=== PATIENT | female | born 1970 | race Caucasian/White ===

== ENCOUNTER 2017-03-24 01:55 | Emergency (ER) | payer BC ==
[2017-03-24] MEDS ORDERED: Ondansetron HCl/PF 4 MG/2 ML Vial ONE (02:34)
[2017-03-24] MEDS ORDERED: Ketorolac Tromethamine 30 MG/ML VIAL ONE (02:34)
[2017-03-24 03:02] LABS: #Eosinphils 0.2 thou/uL (0.0-0.7); #Lymphocytes 2.5 thou/uL (1.20-3.40); #Monocytes 0.6 thou/uL (0.11-0.59); #Neutrophils 5.9 thou/uL (1.40-6.50); %Basophils 0.4 % (0.0-1.0); %Eosinophils 2.5 % (0.0-10.0); %Lymphocytes 27.1 % (21.0-51.0); %Monocytes 6.4 % (0.0-10.0); Hematocrit 37.3 % (36.0-47.0); Mean Platelet Volume 8.5 fL (7.4-10.4); Red Blood Cell (RBC) Count 4.68 mill/uL (4.20-5.40); White Blood Cell (WBC) Count 9.3 thou/uL (4.8-10.8)
[2017-03-24 03:08] LABS: ALT (SGPT) 45 U/L (8-55); AST (SGOT) 36 U/L (5-34); Alkaline Phosphatase 87 U/L (40-150); Anion Gap 13 mmol/L (10-20); BUN (Urea Nitrogen) 14 mg/dL (7.0-18.7); Bilirubin, Total 0.3 mg/dL (0.2-1.2); CK (CPK) 39 U/L (29-168); Calc. Creatinine Clearance 0 mL/min (70-130); Calcium 9.5 mg/dL (7.8-10.44); Carbon Dioxide 28 mmol/L (22-29); Chloride 99 mmol/L (98-107); Estimated GFR-MDRD 75; Globulin 3.4 g/dL (2.4-3.5); Lipase 77 U/L (8-78); Protein, Total 7.3 g/dL (6.0-8.3)
[2017-03-24 03:13] LABS: Troponin I Less than 0.010 ng/mL (< 0.028)
--- NOTE | 2017-03-24 08:25 | ULT ---
PRELIMINARY REPORT/[facility]/EMERGENCY AFTER HOURS PROCEDURE: EXAM: US Abdomen Limited, Right Upper Quadrant EXAM DATE/TIME: Exam ordered 03/24/2017 2:37 AM CLINICAL HISTORY: 46 years old, female; Pain and signs and symptoms; Nausea and other: Diarrhea; Abdominal pain; Genera lized TECHNIQUE: Real-time ultrasound of the right upper quadrant with image documentation. COMPARISON: No relevant prior studies available. FINDINGS: Liver: The liver is enlarged and echogenic compatible fatty liver. No intrahepatic bile duct dilation . Gallbladder: A negative sonographic Marrero sign is reported. No cholelithiasis, sludge, wall thickeni ng or pericholecystic fluid is identified. Common bile duct: Common bile duct measures up to 6 mm per No stones. No dilation. Pancreas: The visualized pancreas is unremarkable. Right kidney: The RIGHT kidney measures 12.2 x 6.0 x 4.7 cm. No stones. No hydronephrosis. IMPRESSION: Hepatic steatosis. Thank you for allowing us to participate in the care of your patient. Dictated and Authenticated by: Sylvain Landon MD 03/24/2017 3:19 AM Central Time ([place] & [place]) FINAL REPORT RIGHT UPPER QUADRANT ULTRASOUND: Date: 03/24/17 COMPARISON: None. HISTORY: Right upper quadrant pain, nausea, diarrhea. FINDINGS: I agree with the preliminary report given by Raul. The hepatic parenchyma is diffusely echogenic and heterogeneous, suggesting hepatocellular disease, such as hepatic steatosis. The imaged pancreas is u nremarkable, the tail partially obscured by bowel gas. [employer] Consultant reports a negative Marrero's sign. Right kidney measures 12.2 cm in craniocaudal dimension and demonstrates no evidence for stone, hydro nephrosis, or mass lesion. No gallbladder wall thickening, pericholecystic fluid, or gallstones noted . CBD measures 5-6 mm, within normal limits. IMPRESSION: Findings suggesting hepatic steatosis. POS: KARYNA
== END 2017-03-24 04:47 | disposition home or self-care (01) ==
LOC: ERS 01:55
DX: R10.13 Epigastric pain (principal); E03.9 Hypothyroidism, unspecified; E11.9 Type 2 diabetes mellitus without complications; I10 Essential (primary) hypertension; E66.9 Obesity, unspecified; Z86.711 Personal history of pulmonary embolism; D64.9 Anemia, unspecified
CPT/HCPCS: 76705; 80053; 82550; 82553; 83690; 84484; 85025; 93005; 96361; 96374; 96375; J1885; J2405

== ENCOUNTER 2019-06-26 15:27 | Outpatient (CLI) | payer BC ==
--- NOTE | 2019-06-26 16:20 | MRI ---
MRI OF THE LUMBAR SPINE WITHOUT CONTRAST: 06/26/19 HISTORY: Low back pain. COMPARISON: None. FINDINGS: The aortic contour is nonaneurysmal. No retroperitoneal or periaortic adenopathy. No marrow infiltrat carlos process. The conus medullaris terminates near the superior end plate of L1. Levels are as follows: L1-2: Normal disc. No neural foraminal or spinal canal narrowing. L2-3: Normal disc. Mild facet arthrosis. No neural foraminal or spinal canal stenosis. L3-4: Normal disc. Mild facet arthrosis. No neural foraminal or spinal canal narrowing. L4-5: Relatively normal disc. Mild facet arthrosis. Small facet joint effusions. No significant neura l foraminal or spinal canal narrowing. L5-S1: Normal disc. Mild to moderate facet arthropathy. No neural foraminal or spinal canal narrowin g. IMPRESSION: 1. No disc herniation. 2. Low grade facet arthrosis throughout the lumbar spine. 3. Small synovial cysts along the left L3-4 facet joint. POS: ALLEN
== END 2019-06-26 15:28 | disposition home or self-care (01) ==
LOC: TBSIIMAG 15:27
PROVIDERS: ATTEND Orthopaedic Surgery
DX: M54.5 Low back pain (principal); M47.816 Spondylosis without myelopathy or radiculopathy, lumbar region
CPT/HCPCS: 72148

== ENCOUNTER 2019-09-18 13:40 | Emergency (ER) | payer BC ==
[~2019-09-18 13:40] MED LIST: Iopamidol-370 76% 500 ML 1 ML ONE
[2019-09-18 14:03] LABS: #Eosinphils 0.2 thou/uL (0.0-0.7); #Lymphocytes 2.8 thou/uL (1.20-3.40); #Monocytes 0.8 thou/uL (0.11-0.59); %Basophils 0.3 % (0.0-1.0); %Eosinophils 1.8 % (0.0-10.0); %Lymphocytes 23.7 % (21.0-51.0); %Monocytes 6.4 % (0.0-10.0); %Neutrophils 67.9 % (42.0-75.0); Hemoglobin 12.8 g/dL (12.0-16.0); Mean Corpuscular HGB CONC 32.6 g/dL (32.0-36.0); Mean Corpuscular Hemoglobin 26.6 pg (27.0-31.0); Mean Corpuscular Volume 81.3 fL (78.0-98.0); Mean Platelet Volume 8.1 fL (7.4-10.4); Platelet Count 317 thou/uL (130-400); RBC Distribution Width 14.9 % (11.5-14.5); Red Blood Cell (RBC) Count 4.84 mill/uL (4.20-5.40); White Blood Cell (WBC) Count 11.8 thou/uL (4.8-10.8)
[2019-09-18 14:23] LABS: ALT (SGPT) 36 U/L (8-55); AST (SGOT) 29 U/L (5-34); Alkaline Phosphatase 79 U/L (40-110); Anion Gap 13 mmol/L (10-20); BUN (Urea Nitrogen) 17 mg/dL (7.0-18.7); Bilirubin, Total 0.6 mg/dL (0.2-1.2); CK (CPK) 57 U/L (29-168); Calc. Creatinine Clearance 0 mL/min (70-130); Calcium 9.3 mg/dL (7.8-10.44); Carbon Dioxide 26 mmol/L (22-29); Chloride 102 mmol/L (98-107); Estimated GFR-MDRD 73; Globulin 3.4 g/dL (2.4-3.5); Glucose 145 mg/dL (70-105); Potassium 4.2 mmol/L (3.5-5.1); Protein, Total 7.4 g/dL (6.0-8.3); Sodium 137 mmol/L (136-145)
[2019-09-18 14:32] LABS: INR-International Normal Ratio 1.7; Prothrombin Time 19.7 sec (12.0-14.7)
--- NOTE | 2019-09-18 14:32 | RAD ---
RADIOGRAPH CHEST 1 VIEW: DATE: 09/18/2019 HISTORY: 48-year-old female with chest pain FINDINGS: There is no airspace density, pulmonary edema, or pneumothorax. The lateral costophrenic angles are n ot effaced. Increased transverse diameter of the cardiac shadow is at least in part due to paracardial fat pads, as demonstrated on prior CTA of 07/14/2016. IMPRESSION: No acute pulmonary findings.
[2019-09-18 14:33] LABS: PTT 39.4 sec (22.9-36.1)
--- NOTE | 2019-09-18 15:30 | CT ---
CT PULMONARY ANGIOGRAM WITH IV CONTRAST AND 3D POSTPROCESSIN09/18/19 HISTORY: Chest pain, shortness of breath. FINDINGS: There is suboptimal opacification of the pulmonary arterial vasculature to evaluate for PE. The thora cic aorta is better opacified than the pulmonary arterial vasculature. No intimal flap is seen in the well opacified thoracic aortic lumen to suggest dissection. No aneurysmal dilatation or the thoracic aorta is seen. No pleural or pericardial effusions are identified. No pneumothoraces, focal areas of consolidation, or lung nodules/masses are identified. There are degenerative changes in the spine. IMPRESSION: 1. Exam is nondiagnostic for pulmonary embolism. 2. No evidence of thoracic aortic aneurysm/dissection. POS: [facility]
--- NOTE | 2019-09-22 14:10 | EKG ---
Test Reason : Blood Pressure : / mmHG Vent. Rate : 083 BPM Atrial Rate : 083 BPM P-R Int : 102 ms QRS Dur : 102 ms QT Int : 406 ms P-R-T Axes : -07 020 027 degrees QTc Int : 477 ms Sinus rhythm with short AL Incomplete right bundle branch block Borderline ECG Confirmed by JANEY ANNE DO ([id number]), publishing editor FINESSE HAGEN ([id number]) on 09/22/2019 2:10:06 PM Referred By: Confirmed By:JANEY ANNE DO
== END 2019-09-18 16:31 | disposition home or self-care (01) ==
LOC: ERS 13:40
DX: R07.89 Other chest pain (principal); E03.9 Hypothyroidism, unspecified; E11.9 Type 2 diabetes mellitus without complications; I49.9 Cardiac arrhythmia, unspecified; I10 Essential (primary) hypertension; D64.9 Anemia, unspecified; E66.9 Obesity, unspecified; G47.30 Sleep apnea, unspecified; F32.9 Major depressive disorder, single episode, unspecified; Z79.899 Other long term (current) drug therapy; Z86.711 Personal history of pulmonary embolism; Z79.4 Long term (current) use of insulin
CPT/HCPCS: 71045; 71275; 80053; 82550; 84484; 85025; 85610; 85730; 93005; Q9967

== ENCOUNTER 2019-12-20 07:33 | Outpatient (CLI) | payer BC ==
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
== END 2019-12-20 07:34 | disposition home or self-care (01) ==
LOC: TBSIIMAG 07:33
PROVIDERS: ATTEND Family Medicine
DX: M54.2 Cervicalgia (principal); R41.0 Disorientation, unspecified
CPT/HCPCS: 70551; 72141

== ENCOUNTER 2020-02-19 15:52 | Emergency (ER) | payer BC ==
[2020-02-19 16:33] LABS: Bacteria/HPF 4+ HPF (None Seen); Bilirubin Negative (Negative); Blood, Urine Negative (Negative); Clarity Clear (Clear); Glucose, Urine (Dipstick) Normal (Negative); Ketone, Urine Negative (Negative); Leukocyte Negative Leu/uL (Negative); Nitrite 2+ (Negative); Protein, Urine (Dipstick) 20 mg/dL (Neg-Trace); RBC/HPF 0-3 HPF (0-3); Specific Gravity, Urine 1.021 (1.002-1.036); Squamous Epithelial 0-3 HPF (0-3); WBC/HPF 0-3 HPF (0-3); pH, Urine 5.5 (5.0-9.0)
[2020-02-19 16:53] LABS: #Eosinphils 0.2 thou/uL (0.0-0.7); #Lymphocytes 2.6 thou/uL (1.20-3.40); #Monocytes 0.8 thou/uL (0.11-0.59); #Neutrophils 8.2 thou/uL (1.40-6.50); %Basophils 0.4 % (0.0-1.0); %Eosinophils 1.8 % (0.0-10.0); %Lymphocytes 21.6 % (21.0-51.0); %Monocytes 6.6 % (0.0-10.0); %Neutrophils 69.5 % (42.0-75.0); Hemoglobin 11.7 g/dL (12.0-16.0); Mean Corpuscular HGB CONC 33.8 g/dL (32.0-36.0); Mean Corpuscular Hemoglobin 27.5 pg (27.0-31.0); Mean Corpuscular Volume 81.3 fL (78.0-98.0); Mean Platelet Volume 7.8 fL (7.4-10.4); Platelet Count 264 thou/uL (130-400); RBC Distribution Width 14.5 % (11.5-14.5); Red Blood Cell (RBC) Count 4.27 mill/uL (4.20-5.40); White Blood Cell (WBC) Count 11.8 thou/uL (4.8-10.8)
[2020-02-19 17:22] LABS: ALT (SGPT) 33 U/L (8-55); AST (SGOT) 25 U/L (5-34); Albumin 3.6 g/dL (3.5-5.0); Alkaline Phosphatase 75 U/L (40-110); Anion Gap 17 mmol/L (10-20); BUN (Urea Nitrogen) 14 mg/dL (7.0-18.7); Bilirubin, Total 0.3 mg/dL (0.2-1.2); Calc. Creatinine Clearance 0 mL/min (70-130); Calcium 8.8 mg/dL (7.8-10.44); Carbon Dioxide 27 mmol/L (22-29); Chloride 100 mmol/L (98-107); Estimated GFR-MDRD 65; Globulin 2.7 g/dL (2.4-3.5); Glucose 185 mg/dL (70-105); Potassium 4.6 mmol/L (3.5-5.1); Protein, Total 6.3 g/dL (6.0-8.3); Sodium 139 mmol/L (136-145)
[2020-02-19 17:29] LABS: INR-International Normal Ratio 2.4; Prothrombin Time 26.3 sec (12.0-14.7)
[2020-02-19 17:30] LABS: PTT 53.8 sec (22.9-36.1)
--- NOTE | 2020-02-19 17:36 | RAD ---
EXAM: CHEST ONE VIEW: 02/19/20 HISTORY: Abdominal pain, left sided. COMPARISON: 09/18/19. FINDINGS: Stable appearing cardiomegaly. No confluent pneumonia, overt edema, or pleural effusion. IMPRESSION: Stable cardiomegaly. No evidence for other acute process. POS: RRE
--- NOTE | 2020-02-19 18:25 | CT ---
CT ANGIOGRAM THORAX WITH IV CONTRAST AND 3-D RECONSTRUCTIONS CLINICAL INDICATION: Dyspnea. Left-sided abdominal pain. COMPARISON: 09/18/2019 FINDINGS: Pulmonary arteries: No filling defects are seen in the central or segmental pulmonary arteries. There is suboptimal opacification of the subsegmental pulmonary arteries, and pulmonary embolus at the subsegmental level would be difficult to exclude. Aorta: Mild vascular calcifications at the aortic arch. The thoracic aorta is normal in caliber witho ut evidence of an aortic dissection. Lungs: Clear without evidence of consolidation or pleural effusion. Mediastinum: No enlarged lymph nodes are seen by CT size criteria. Thyroid gland: Calcifications are seen in the right lobe of the thyroid gland. Osseous structures: Degenerative changes are seen in the spine. Chest wall: No abnormality visualized. Upper abdomen: Postcholecystectomy changes. Please see CT abdomen dictated as a separate report for f gibson details. IMPRESSION: No CT evidence of a pulmonary mass involving the central or segmental pulmonary arteries. There is nielson boptimal opacification of the subsegmental pulmonary arteries, and pulmonary embolus at this level is unable to be excluded.
--- NOTE | 2020-02-19 18:32 | CT ---
CT ABDOMEN AND PELVIS WITH IV CONTRAST 02/19/2020 CLINICAL INFORMATION: Left-sided abdominal pain. History of hysterectomy. COMPARISON: 05/14/2017. Technique: Multiple contiguous axial CT images are obtained through the abdomen and pelvis with IV contrast. Cor onal reformatted images are provided. FINDINGS: Lower Chest: Lung bases are clear. Vessels: Abdominal aorta is normal in caliber. Abdomen: Portal vein:Patent Gallbladder: Surgically absent. Liver: Enlarged in craniocaudal dimensions measuring 19 cm. Spleen: The upper limits of normal to borderline in size measuring 13.6 cm in craniocaudal dimensions appear Pancreas: within normal limits. Adrenals: within normal limits. Kidneys: Right kidney remains rotated. Kidneys otherwise have a normal appearance and stable from leticia or exam. Bowel: Evidence of colonic diverticulosis. Loops of small bowel are normal in caliber. Appendix: The appendix is mildly increased in diameter measuring 9 to 10 mm with mild increased densi ty seen within the gallbladder lumen. There are no periappendiceal inflammatory changes identified. The diameter of the appendix is probably within normal limits for the patient. Peritoneum: No ascites or free air; no fluid collection. Mesentery and Retroperitoneum: No enlarged mesenteric or retroperitoneal lymph nodes. Abdominal Wall: Anterior abdominal wall is obscured from view, but there is suggestion subcutaneous e lexie right anterolateral abdomen. Pelvis: Reproductive Organs: Evidence of hysterectomy. Bladder: within normal limits. Bones: No suspicious lytic or sclerotic osseous lesions. IMPRESSION: 1. The appendix is increased in diameter measuring 9 to 10 mm. No periappendiceal inflammatory change s or cecal apical thickening or other secondary signs to support just appendicitis are visualized. This may be within normal limits for the patient. However, if the patient has signs or symptoms to nielson ggest appendicitis, follow-up imaging or surgical consultation is recommended. 2. Colonic diverticulosis. 3. Hysterectomy. 4. Cholecystectomy. 5. Enlargement of liver and spleen in craniocaudal dimensions. This could be attributable to patient' s body habitus as opposed to hepatosplenomegaly; although, this is a possibility.
--- NOTE | 2020-02-23 16:29 | EKG ---
Test Reason : AB PAIN Blood Pressure : / mmHG Vent. Rate : 082 BPM Atrial Rate : 082 BPM P-R Int : 144 ms QRS Dur : 110 ms QT Int : 406 ms P-R-T Axes : 029 011 031 degrees QTc Int : 474 ms Normal sinus rhythm Incomplete right bundle branch block Borderline ECG Confirmed by DALLAS POP DO ([id number]), news videotape editor FINESSE HAGEN ([id number]) on 02/23/2020 4:28:50 PM Referred By: KIESHA Confirmed By:DALLAS POP DO
== END 2020-02-19 19:51 | disposition home or self-care (01) ==
LOC: ERS 15:52
DX: R10.12 Left upper quadrant pain (principal); R06.00 Dyspnea, unspecified; E03.9 Hypothyroidism, unspecified; I49.9 Cardiac arrhythmia, unspecified; E11.9 Type 2 diabetes mellitus without complications; I10 Essential (primary) hypertension; E66.9 Obesity, unspecified; D64.9 Anemia, unspecified; G47.30 Sleep apnea, unspecified; Z86.718 Personal history of other venous thrombosis and embolism; Z79.4 Long term (current) use of insulin; Z79.899 Other long term (current) drug therapy
CPT/HCPCS: 71045; 71275; 74177; 80053; 81003; 81015; 82010; 83880; 84484; 85025; 85610; 85730; 87077; 87086; 93005; 94760; Q9967

== ENCOUNTER 2020-02-22 21:14 | Emergency (ER) | payer BC ==
[2020-02-22 21:48] LABS: #Basophils 0.1 thou/uL (0.0-0.2); #Eosinphils 0.3 thou/uL (0.0-0.7); #Lymphocytes 2.9 thou/uL (1.20-3.40); #Monocytes 0.8 thou/uL (0.11-0.59); #Neutrophils 7.4 thou/uL (1.40-6.50); %Basophils 0.9 % (0.0-1.0); %Eosinophils 2.3 % (0.0-10.0); %Lymphocytes 25.5 % (21.0-51.0); %Monocytes 6.6 % (0.0-10.0); %Neutrophils 64.7 % (42.0-75.0); Hemoglobin 12.1 g/dL (12.0-16.0); Mean Corpuscular HGB CONC 32.6 g/dL (32.0-36.0); Mean Corpuscular Hemoglobin 26.6 pg (27.0-31.0); Mean Corpuscular Volume 81.7 fL (78.0-98.0); Mean Platelet Volume 7.6 fL (7.4-10.4); Platelet Count 300 thou/uL (130-400); RBC Distribution Width 14.3 % (11.5-14.5); Red Blood Cell (RBC) Count 4.54 mill/uL (4.20-5.40); White Blood Cell (WBC) Count 11.4 thou/uL (4.8-10.8)
[2020-02-22 22:07] LABS: ALT (SGPT) 23 U/L (8-55); AST (SGOT) 19 U/L (5-34); Albumin 3.7 g/dL (3.5-5.0); Alkaline Phosphatase 83 U/L (40-110); Anion Gap 15 mmol/L (10-20); BUN (Urea Nitrogen) 13 mg/dL (7.0-18.7); Bilirubin, Total 0.3 mg/dL (0.2-1.2); Calc. Creatinine Clearance 0 mL/min (70-130); Calcium 9.1 mg/dL (7.8-10.44); Carbon Dioxide 28 mmol/L (22-29); Chloride 99 mmol/L (98-107); Estimated GFR-MDRD 69; Globulin 3.3 g/dL (2.4-3.5); Glucose 236 mg/dL (70-105); Lipase 36 U/L (8-78); Potassium 4.6 mmol/L (3.5-5.1); Sodium 137 mmol/L (136-145)
[2020-02-22] MEDS ORDERED: Morphine 4 MG/ML VIAL ONE (22:17)
== END 2020-02-22 22:37 | disposition home or self-care (01) ==
LOC: ERS 21:14
DX: R10.12 Left upper quadrant pain (principal); E03.9 Hypothyroidism, unspecified; E11.9 Type 2 diabetes mellitus without complications; I10 Essential (primary) hypertension; E66.01 Morbid (severe) obesity due to excess calories; Z86.711 Personal history of pulmonary embolism; D64.9 Anemia, unspecified; F32.9 Major depressive disorder, single episode, unspecified; Z86.718 Personal history of other venous thrombosis and embolism; Z79.84 Long term (current) use of oral hypoglycemic drugs; Z79.899 Other long term (current) drug therapy
CPT/HCPCS: 36415; 80053; 83690; 85025; 93005; 96372; J2270

== ENCOUNTER 2021-04-25 16:45 | Emergency (ER) | payer BC ==
[2021-04-25] MEDS ORDERED: Aspirin Chewable 81 MG TAB ONE (17:21)
[2021-04-25] MEDS ORDERED: Labetalol HCl 100 MG/20 ML VIAL ONE (17:21)
[2021-04-25 17:53] LABS: INR-International Normal Ratio 2.3; Prothrombin Time 25.8 sec (12.0-14.7)
[2021-04-25 17:54] LABS: PTT 59.2 sec (22.9-36.1)
[2021-04-25 17:59] LABS: D-Dimer Test Less than 0.27 *mcg/mL (0.27-0.43)
[2021-04-25 18:02] LABS: ALT (SGPT) 24 U/L (8-55); AST (SGOT) 19 U/L (5-34); Albumin 3.8 g/dL (3.5-5.0); Alkaline Phosphatase 76 U/L (40-110); Anion Gap 14 mmol/L (10-20); BUN (Urea Nitrogen) 15 mg/dL (9.8-20.1); Bilirubin, Total 0.4 mg/dL (0.2-1.2); CK (CPK) 43 U/L (29-168); Calc. Creatinine Clearance 0 mL/min (70-130); Carbon Dioxide 25 mmol/L (22-29); Chloride 100 mmol/L (98-107); Globulin 3.5 g/dL (2.4-3.5); Glucose 176 mg/dL (70-105); Magnesium 1.5 mg/dL (1.6-2.6); Potassium 4.4 mmol/L (3.5-5.1); Protein, Total 7.3 g/dL (6.0-8.3); Sodium 135 mmol/L (136-145)
== END 2021-04-25 20:47 | disposition home or self-care (01) ==
LOC: ERS 16:45
DX: R07.9 Chest pain, unspecified (principal); I10 Essential (primary) hypertension; E11.9 Type 2 diabetes mellitus without complications; D64.9 Anemia, unspecified; E03.9 Hypothyroidism, unspecified; Z79.84 Long term (current) use of oral hypoglycemic drugs; Z79.4 Long term (current) use of insulin; Z79.899 Other long term (current) drug therapy
CPT/HCPCS: 71045; 80053; 82550; 83735; 83880; 84484; 85379; 85610; 85730; 93005; 96374; 96376

== ENCOUNTER 2021-11-24 21:24 | Emergency (ER) | payer BC ==
[2021-11-24 21:45] LABS: #Eosinphils 0.3 thou/uL (0.0-0.7); #Monocytes 0.9 thou/uL (0.11-0.59); #Neutrophils 8.7 thou/uL (1.40-6.50); %Eosinophils 2.3 % (0.0-10.0); %Lymphocytes 23.3 % (21.0-51.0); %Neutrophils 67.4 % (42.0-75.0); Hemoglobin 10.7 g/dL (12.0-16.0); Mean Corpuscular HGB CONC 31.7 g/dL (32.0-36.0); Mean Corpuscular Hemoglobin 25.2 pg (27.0-31.0); Mean Corpuscular Volume 79.5 fL (78.0-98.0); Mean Platelet Volume 7.7 fL (7.4-10.4); Platelet Count 307 thou/uL (130-400); RBC Distribution Width 15.4 % (11.5-14.5); Red Blood Cell (RBC) Count 4.23 mill/uL (4.20-5.40); White Blood Cell (WBC) Count 12.9 thou/uL (4.8-10.8)
[2021-11-24 22:21] LABS: ALT (SGPT) 15 U/L (8-55); AST (SGOT) 15 U/L (5-34); Albumin 3.7 g/dL (3.5-5.0); Alkaline Phosphatase 75 U/L (40-110); Anion Gap 14 mmol/L (10-20); BUN (Urea Nitrogen) 12 mg/dL (9.8-20.1); Bilirubin, Total 0.4 mg/dL (0.2-1.2); Calc. Creatinine Clearance 0 mL/min (70-130); Calcium 9.1 mg/dL (7.8-10.44); Carbon Dioxide 28 mmol/L (22-29); Chloride 101 mmol/L (98-107); Estimated GFR 75; Globulin 3.6 g/dL (2.4-3.5); Lipase 49 U/L (8-78); Potassium 4.5 mmol/L (3.5-5.1); Protein, Total 7.3 g/dL (6.0-8.3); Sodium 138 mmol/L (136-145)
[2021-11-24 22:53] LABS: Glucose 184 mg/dL (70-105)
[2021-11-24 23:34] LABS: INR-International Normal Ratio 2.6; Prothrombin Time 27.9 sec (12.0-14.7)
[2021-11-24 23:36] LABS: PTT 76.8 sec (22.9-36.1)
[2021-11-25] MEDS ORDERED: Morphine 4 MG/ML VIAL ONE (00:48)
[2021-11-25] MEDS ORDERED: Ondansetron PF 4 MG/2 ML Vial ONE (00:49)
[2021-11-25 01:04] LABS: Bacteria/HPF 4+ HPF (None Seen); Bilirubin Negative (Negative); Blood, Urine 3+ (Negative); Clarity Clear (Clear); Glucose, Urine (Dipstick) Normal (Negative); Ketone, Urine Negative (Negative); Leukocyte 75 Leu/uL (Negative); Nitrite 1+ (Negative); Protein, Urine (Dipstick) 10 mg/dL (Neg-Trace); Specific Gravity, Urine 1.037 (1.002-1.036); Squamous Epithelial 0-3 HPF (0-3); Urobilinogen Normal mg/dL (Less than 2); pH, Urine 5.5 (5.0-9.0)
== END 2021-11-25 01:20 | disposition home or self-care (01) ==
LOC: ERS 21:24
DX: N39.0 Urinary tract infection, site not specified (principal); M79.641 Pain in right hand; G89.18 Other acute postprocedural pain; E11.9 Type 2 diabetes mellitus without complications; E03.9 Hypothyroidism, unspecified; I10 Essential (primary) hypertension; D50.9 Iron deficiency anemia, unspecified; Z86.718 Personal history of other venous thrombosis and embolism; Z86.711 Personal history of pulmonary embolism
CPT/HCPCS: 36415; 74177; 80053; 81003; 81015; 83605; 83690; 85025; 85610; 85730; 96374; 96375; J2270; J2405; Q9967

== ENCOUNTER 2022-11-10 09:26 | Emergency (ER) | payer BC ==
[2022-11-10] MEDS ORDERED: Acetaminophen 325 MG TAB ONE (10:56)
[2022-11-10] MEDS ORDERED: Morphine 4 MG/ML VIAL ONE (12:36)
== END 2022-11-10 15:26 | disposition home or self-care (01) ==
LOC: ERS 09:26
DX: M25.562 Pain in left knee (principal); E11.9 Type 2 diabetes mellitus without complications; I10 Essential (primary) hypertension; E03.9 Hypothyroidism, unspecified; Z79.899 Other long term (current) drug therapy; Z79.84 Long term (current) use of oral hypoglycemic drugs
CPT/HCPCS: 96372; J2270

== ENCOUNTER 2022-11-18 22:48 | Inpatient (IN) | payer BC ==
[2022-11-18 23:11] LABS: #Basophils 0.1 thou/uL (0.0-0.2); #Eosinphils 0.3 thou/uL (0.0-0.7); %Basophils 0.4 % (0.0-1.0); %Eosinophils 2.4 % (0.0-10.0); %Lymphocytes 21.3 % (21.0-51.0); %Monocytes 7.1 % (0.0-10.0); %Neutrophils 66.4 % (42.0-75.0); Hematocrit 28.4 % (36.0-47.0); Hemoglobin 8.6 g/dL (12.0-16.0); Mean Corpuscular HGB CONC 30.3 g/dL (32.0-36.0); Mean Corpuscular Hemoglobin 24.1 pg (27.0-31.0); Mean Corpuscular Volume 79.6 fl (78.0-98.0); Mean Platelet Volume 8.9 fL (7.4-10.4); Platelet Count 451 10x3/uL (130-400); RBC Distribution Width 17.4 % (11.5-14.5); Red Blood Cell (RBC) Count 3.57 mill/uL (4.20-5.40); White Blood Cell (WBC) Count 13.6 10x3/uL (4.8-10.8)
[2022-11-18 23:38] LABS: ALT (SGPT) 12 U/L (8-55); AST (SGOT) 18 U/L (5-34); Albumin 3.6 g/dL (3.5-5.0); Alkaline Phosphatase 69 U/L (40-110); Anion Gap 14 mmol/L (10-20); BUN (Urea Nitrogen) 16 mg/dL (9.8-20.1); Bilirubin, Total 0.6 mg/dL (0.2-1.2); Calc. Creatinine Clearance 0 mL/min (70-130); Calcium 9.3 mg/dL (7.8-10.44); Carbon Dioxide 27 mmol/L (22-29); Chloride 101 mmol/L (98-107); Estimated GFR 81; Glucose 174 mg/dL (70-105); Potassium 4.6 mmol/L (3.5-5.1); Protein, Total 7.6 g/dL (6.0-8.3); Sodium 137 mmol/L (136-145)
[2022-11-19] MEDS ORDERED: Morphine 4 MG/ML VIAL ONE ×2 (01:07→04:30)
[2022-11-19] MEDS ORDERED: Ondansetron PF 4 MG/2 ML Vial ONE ×2 (01:14→04:30)
[2022-11-19 03:37] LABS: Prothrombin Time 75.4 sec (12.0-14.7)
[2022-11-19 03:44] LABS: INR-International Normal Ratio 8.7; PTT 205.8 sec (22.9-36.1)
[2022-11-19] MEDS ORDERED: Phytonadione 10 MG/ML AMP ONE (03:57)
[2022-11-19] MEDS ORDERED: Ondansetron ODT 4 MG TAB PO PRN (05:17)
[2022-11-19] MEDS ORDERED: Calcium Carbonate 500 MG ChewTAB PO PRN (05:17)
[2022-11-19] MEDS ORDERED: Bisacodyl 5 MG TAB PO PRN (05:17)
[2022-11-19] MEDS ORDERED: Senokot S 8.6-50 MG TAB PO PRN (05:17)
[2022-11-19] MEDS: Levothyroxine Sodium 50 MCG TAB PO SCH (06:35)
[2022-11-19 06:50] LABS: Hemoglobin A1c 6.5 % (4.0-6.0)
[2022-11-19] MEDS ORDERED: Acetaminophen 325 MG TAB ONE (06:52)
[2022-11-19] MEDS: Acetaminophen 325 MG TAB PO PRN (06:56)
[2022-11-19] MEDS ORDERED: Famotidine 20 MG TAB ONE (09:23)
[2022-11-19] MEDS: metFORMIN XR 500 MG TAB PO SCH ×2 (09:26→17:54)
[2022-11-19] MEDS: glipiZIDE 5 MG TAB PO SCH ×2 (09:26→17:54)
[2022-11-19] MEDS: Famotidine 20 MG TAB PO SCH ×2 (09:26→19:48)
[2022-11-19] MEDS ORDERED: Glucagon 1 MG/ML KIT IM PRN (09:37)
[2022-11-19] MEDS ORDERED: Dextrose 5% in Water 1,000 ML IV PRN (09:37)
[2022-11-19] MEDS ORDERED: Dextrose 50% Abboject 50 ML SYRINGE SLOW IVP PRN (09:37)
[2022-11-19] MEDS ORDERED: Iopamidol-370 76% 500 ML MDV (1 ML CHARGE) ONE (10:01)
[2022-11-19 15:07] VITALS: BMI 55.4
[2022-11-19] MEDS: Lisinopril 10 MG TAB PO SCH (19:48)
[2022-11-19] MEDS: Morphine 2 MG/ML VIAL SLOW IVP PRN (19:48)
[2022-11-19] MEDS: Atorvastatin Calcium 10 MG TAB PO SCH (19:48)
[2022-11-20] MEDS: Morphine 2 MG/ML VIAL SLOW IVP PRN ×2 (00:12→21:14)
[2022-11-20] MEDS: Levothyroxine Sodium 50 MCG TAB PO SCH (05:25)
[2022-11-20 05:48] LABS: #Eosinphils 0.4 thou/uL (0.0-0.7); #Monocytes 0.7 thou/uL (0.11-0.59); #Neutrophils 7.7 thou/uL (1.40-6.50); %Basophils 0.3 % (0.0-1.0); %Eosinophils 3.1 % (0.0-10.0); %Lymphocytes 21.1 % (21.0-51.0); %Monocytes 6.1 % (0.0-10.0); %Neutrophils 67.6 % (42.0-75.0); Hematocrit 26.2 % (36.0-47.0); Hemoglobin 7.8 g/dL (12.0-16.0); Mean Corpuscular HGB CONC 29.8 g/dL (32.0-36.0); Mean Corpuscular Hemoglobin 24.1 pg (27.0-31.0); Mean Corpuscular Volume 81.1 fl (78.0-98.0); Mean Platelet Volume 8.8 fL (7.4-10.4); Platelet Count 383 10x3/uL (130-400); RBC Distribution Width 17.2 % (11.5-14.5); Red Blood Cell (RBC) Count 3.23 mill/uL (4.20-5.40); White Blood Cell (WBC) Count 11.5 10x3/uL (4.8-10.8)
[2022-11-20 05:58] LABS: INR-International Normal Ratio 1.3; Prothrombin Time 16.7 sec (12.0-14.7)
[2022-11-20 06:13] LABS: Anion Gap 12 mmol/L (10-20); BUN (Urea Nitrogen) 12 mg/dL (9.8-20.1); Calc. Creatinine Clearance 188 mL/min (70-130); Carbon Dioxide 28 mmol/L (22-29); Chloride 101 mmol/L (98-107); Estimated GFR 82; Glucose 94 mg/dL (70-105); Potassium 4.1 mmol/L (3.5-5.1); Sodium 137 mmol/L (136-145)
[2022-11-20] MEDS: Famotidine 20 MG TAB PO SCH ×2 (08:28→19:51)
[2022-11-20] MEDS: glipiZIDE 5 MG TAB PO SCH ×2 (08:28→16:38)
[2022-11-20] MEDS: metFORMIN XR 500 MG TAB PO SCH ×2 (08:29→16:41)
[2022-11-20] MEDS: Warfarin Sodium 2.5 MG TAB PO SCH (16:41)
[2022-11-20 16:53] LABS: Hematocrit 26.8 % (36.0-47.0); Hemoglobin 8.1 g/dL (12.0-16.0); Platelet Count 411 10x3/uL (130-400)
[2022-11-20] MEDS: Heparin 25,000 units/D5W 500 ML IVPB SCH (17:54)
[2022-11-20 18:26] LABS: Hemoglobin 8.1 g/dL (12.0-16.0); Platelet Count 423 10x3/uL (130-400)
[2022-11-20 18:38] LABS: INR-International Normal Ratio 1.4; Prothrombin Time 17.3 sec (12.0-14.7)
[2022-11-20] MEDS: Atorvastatin Calcium 10 MG TAB PO SCH (19:50)
[2022-11-20] MEDS: Lisinopril 10 MG TAB PO SCH (19:50)
[2022-11-20 23:48] LABS: Hemoglobin 7.5 g/dL (12.0-16.0); Platelet Count 395 10x3/uL (130-400)
[2022-11-21 00:04] LABS: INR-International Normal Ratio 1.3; Prothrombin Time 16.7 sec (12.0-14.7)
[2022-11-21 00:06] LABS: PTT 102.8 sec (22.9-36.1)
[2022-11-21] MEDS: Acetaminophen 325 MG TAB PO PRN (01:17)
[2022-11-21] MEDS: Levothyroxine Sodium 50 MCG TAB PO SCH (05:08)
[2022-11-21] MEDS: Heparin 25,000 units/D5W 500 ML IVPB SCH ×2 (05:08→17:28)
[2022-11-21 06:40] LABS: INR-International Normal Ratio 1.3; Prothrombin Time 16.6 sec (12.0-14.7)
[2022-11-21 06:41] LABS: PTT 60.3 sec (22.9-36.1)
[2022-11-21] MEDS: glipiZIDE 5 MG TAB PO SCH ×2 (08:07→17:27)
[2022-11-21] MEDS: Famotidine 20 MG TAB PO SCH ×2 (08:07→20:34)
[2022-11-21] MEDS: metFORMIN XR 500 MG TAB PO SCH ×2 (08:07→17:28)
[2022-11-21] MEDS: Heparin 10,000 UNITS/ 10 ML VIAL SLOW IVP SCH (08:07)
[2022-11-21] MEDS: Morphine 2 MG/ML VIAL SLOW IVP PRN ×2 (08:21→20:34)
[2022-11-21 11:38] LABS: INR-International Normal Ratio 1.3
[2022-11-21 11:56] LABS: PTT Greater than 250.0 sec (22.9-36.1)
[2022-11-21 14:09] LABS: INR-International Normal Ratio 1.2; Prothrombin Time 16.1 sec (12.0-14.7)
[2022-11-21 14:11] LABS: PTT 69.3 sec (22.9-36.1)
[2022-11-21] MEDS: Warfarin Sodium 2.5 MG TAB PO SCH (17:28)
[2022-11-21] MEDS: Atorvastatin Calcium 10 MG TAB PO SCH (20:34)
[2022-11-21] MEDS: Lisinopril 10 MG TAB PO SCH (20:34)
[2022-11-21 21:15] LABS: INR-International Normal Ratio 1.3; Prothrombin Time 17.2 sec (12.0-14.7)
[2022-11-21 21:19] LABS: PTT 132.4 sec (22.9-36.1)
[2022-11-21 23:38] LABS: INR-International Normal Ratio 1.2; Prothrombin Time 16.1 sec (12.0-14.7)
[2022-11-21 23:39] LABS: PTT 41.6 sec (22.9-36.1)
[2022-11-22] MEDS: Morphine 2 MG/ML VIAL SLOW IVP PRN ×2 (00:01→21:23)
[2022-11-22] MEDS: Acetaminophen 325 MG TAB PO PRN ×2 (00:02→21:31)
[2022-11-22] MEDS: Levothyroxine Sodium 50 MCG TAB PO SCH (05:29)
[2022-11-22 06:23] LABS: INR-International Normal Ratio 1.3; Prothrombin Time 16.2 sec (12.0-14.7)
[2022-11-22] MEDS: Heparin 10,000 UNITS/ 10 ML VIAL SLOW IVP SCH ×2 (06:45→19:23)
[2022-11-22] MEDS: glipiZIDE 5 MG TAB PO SCH ×2 (08:20→17:42)
[2022-11-22] MEDS: Heparin 25,000 units/D5W 500 ML IVPB SCH ×2 (08:20→23:03)
[2022-11-22] MEDS: metFORMIN XR 500 MG TAB PO SCH ×2 (08:20→17:43)
[2022-11-22] MEDS: Famotidine 20 MG TAB PO SCH ×2 (08:20→21:30)
[2022-11-22 12:41] LABS: INR-International Normal Ratio 1.4; Prothrombin Time 17.2 sec (12.0-14.7)
[2022-11-22 12:43] LABS: PTT 102.1 sec (22.9-36.1)
[2022-11-22] MEDS: Warfarin Sodium 5 MG TAB PO SCH (17:43)
[2022-11-22 18:53] LABS: INR-International Normal Ratio 1.3; Prothrombin Time 16.4 sec (12.0-14.7)
[2022-11-22 18:54] LABS: PTT 45.9 sec (22.9-36.1)
[2022-11-22] MEDS: Lisinopril 10 MG TAB PO SCH (21:30)
[2022-11-22] MEDS: Atorvastatin Calcium 10 MG TAB PO SCH (21:30)
[2022-11-22] MEDS ORDERED: Morphine 2 MG/ML VIAL SLOW IVP SCH (23:15)
[2022-11-23 01:26] LABS: INR-International Normal Ratio 1.2; Prothrombin Time 16.1 sec (12.0-14.7)
[2022-11-23 01:29] LABS: PTT 107.3 sec (22.9-36.1)
[2022-11-23] MEDS: Levothyroxine Sodium 50 MCG TAB PO SCH (06:07)
[2022-11-23] MEDS: Acetaminophen 325 MG TAB PO PRN ×3 (06:08→20:35)
[2022-11-23 07:36] LABS: INR-International Normal Ratio 1.4; Prothrombin Time 17.2 sec (12.0-14.7)
[2022-11-23 07:45] LABS: #Eosinphils 0.3 thou/uL (0.0-0.7); #Monocytes 0.6 thou/uL (0.11-0.59); #Neutrophils 5.9 thou/uL (1.40-6.50); %Basophils 0.4 % (0.0-1.0); %Eosinophils 2.9 % (0.0-10.0); %Lymphocytes 25.2 % (21.0-51.0); %Monocytes 6.6 % (0.0-10.0); %Neutrophils 61.5 % (42.0-75.0); Hematocrit 25.4 % (36.0-47.0); Hemoglobin 7.6 g/dL (12.0-16.0); Mean Corpuscular HGB CONC 29.9 g/dL (32.0-36.0); Mean Corpuscular Hemoglobin 24.1 pg (27.0-31.0); Mean Corpuscular Volume 80.4 fl (78.0-98.0); Mean Platelet Volume 9.3 fL (7.4-10.4); Platelet Count 353 10x3/uL (130-400); RBC Distribution Width 18.3 % (11.5-14.5); Red Blood Cell (RBC) Count 3.16 mill/uL (4.20-5.40); White Blood Cell (WBC) Count 9.6 10x3/uL (4.8-10.8)
[2022-11-23 07:59] LABS: Anion Gap 13 mmol/L (10-20); BUN (Urea Nitrogen) 11 mg/dL (9.8-20.1); Calc. Creatinine Clearance 178 mL/min (70-130); Calcium 8.8 mg/dL (7.8-10.44); Carbon Dioxide 26 mmol/L (22-29); Chloride 101 mmol/L (98-107); Estimated GFR 76; Glucose 177 mg/dL (70-105); Potassium 3.8 mmol/L (3.5-5.1); Sodium 136 mmol/L (136-145)
[2022-11-23] MEDS: metFORMIN XR 500 MG TAB PO SCH ×2 (08:07→17:23)
[2022-11-23] MEDS: FLUoxetine HCl 20 MG CAP PO SCH (08:07)
[2022-11-23] MEDS: glipiZIDE 5 MG TAB PO SCH ×2 (08:07→17:23)
[2022-11-23] MEDS: Famotidine 20 MG TAB PO SCH ×2 (08:07→20:32)
[2022-11-23 08:19] LABS: PTT 133.5 sec (22.9-36.1)
[2022-11-23] MEDS: Nystatin Powder 15 GM BOT TOP SCH (15:23)
[2022-11-23] MEDS: Heparin 25,000 units/D5W 500 ML IVPB SCH (15:26)
[2022-11-23] MEDS: Warfarin Sodium 5 MG TAB PO SCH (17:23)
[2022-11-23] MEDS: Heparin 10,000 UNITS/ 10 ML VIAL SLOW IVP SCH (19:41)
[2022-11-23] MEDS: Atorvastatin Calcium 10 MG TAB PO SCH (20:32)
[2022-11-23] MEDS: Lisinopril 10 MG TAB PO SCH (20:32)
[2022-11-24] MEDS: Acetaminophen 325 MG TAB PO PRN ×2 (01:10→12:00)
[2022-11-24 01:49] LABS: INR-International Normal Ratio 1.4; Prothrombin Time 17.7 sec (12.0-14.7)
[2022-11-24] MEDS: Heparin 25,000 units/D5W 500 ML IVPB SCH ×2 (05:15→17:39)
[2022-11-24] MEDS: Levothyroxine Sodium 50 MCG TAB PO SCH (05:18)
[2022-11-24] MEDS: FLUoxetine HCl 20 MG CAP PO SCH (08:21)
[2022-11-24] MEDS: metFORMIN XR 500 MG TAB PO SCH ×2 (08:22→17:40)
[2022-11-24] MEDS: glipiZIDE 5 MG TAB PO SCH ×2 (08:22→17:40)
[2022-11-24] MEDS: Famotidine 20 MG TAB PO SCH ×2 (08:22→20:57)
[2022-11-24] MEDS: Nystatin Powder 15 GM BOT TOP SCH ×2 (08:22→20:58)
[2022-11-24 08:28] LABS: #Eosinphils 0.3 thou/uL (0.0-0.7); #Monocytes 0.7 thou/uL (0.11-0.59); #Neutrophils 6.1 thou/uL (1.40-6.50); %Basophils 0.4 % (0.0-1.0); %Lymphocytes 24.2 % (21.0-51.0); %Monocytes 6.8 % (0.0-10.0); %Neutrophils 62.5 % (42.0-75.0); Hematocrit 27.3 % (36.0-47.0); Hemoglobin 8.1 g/dL (12.0-16.0); Mean Corpuscular HGB CONC 29.7 g/dL (32.0-36.0); Mean Platelet Volume 8.7 fL (7.4-10.4); Platelet Count 344 10x3/uL (130-400); RBC Distribution Width 18.5 % (11.5-14.5); Red Blood Cell (RBC) Count 3.37 mill/uL (4.20-5.40); White Blood Cell (WBC) Count 9.8 10x3/uL (4.8-10.8)
[2022-11-24 08:51] LABS: Anion Gap 16 mmol/L (10-20); BUN (Urea Nitrogen) 11 mg/dL (9.8-20.1); Calc. Creatinine Clearance 180 mL/min (70-130); Carbon Dioxide 23 mmol/L (22-29); Chloride 100 mmol/L (98-107); Estimated GFR 77; Glucose 208 mg/dL (70-105); Potassium 3.8 mmol/L (3.5-5.1); Sodium 135 mmol/L (136-145)
[2022-11-24 08:52] LABS: INR-International Normal Ratio 1.5; Prothrombin Time 19.2 sec (12.0-14.7)
[2022-11-24 08:53] LABS: PTT 70.5 sec (22.9-36.1)
[2022-11-24] MEDS ORDERED: Lidocaine 1% (PF) 30 ML VIAL ONE (09:54)
[2022-11-24] MEDS: HumaLOG 300 UNITS/3 ML VIAL SC PRN (14:06)
[2022-11-24] MEDS: Morphine 2 MG/ML VIAL SLOW IVP PRN (14:10)
[2022-11-24] MEDS ORDERED: Warfarin Sodium 7.5 MG TAB PO SCH (17:00)
[2022-11-24] MEDS: Atorvastatin Calcium 10 MG TAB PO SCH (20:57)
[2022-11-24] MEDS: Lisinopril 10 MG TAB PO SCH (20:57)
[2022-11-25] MEDS ORDERED: diphenhydrAMINE 25 MG CAP PO SCH (02:00)
[2022-11-25] MEDS: Heparin 25,000 units/D5W 500 ML IVPB SCH (05:17)
[2022-11-25] MEDS: Levothyroxine Sodium 50 MCG TAB PO SCH (05:18)
[2022-11-25 06:26] LABS: #Eosinphils 0.3 thou/uL (0.0-0.7); #Monocytes 0.7 thou/uL (0.11-0.59); #Neutrophils 6.3 thou/uL (1.40-6.50); %Basophils 0.4 % (0.0-1.0); %Eosinophils 3.2 % (0.0-10.0); %Lymphocytes 26.1 % (21.0-51.0); %Monocytes 6.8 % (0.0-10.0); %Neutrophils 61.6 % (42.0-75.0); Hemoglobin 7.9 g/dL (12.0-16.0); Mean Corpuscular HGB CONC 30.4 g/dL (32.0-36.0); Mean Corpuscular Hemoglobin 24.6 pg (27.0-31.0); Mean Platelet Volume 9.1 fL (7.4-10.4); Platelet Count 321 10x3/uL (130-400); RBC Distribution Width 18.6 % (11.5-14.5); Red Blood Cell (RBC) Count 3.21 mill/uL (4.20-5.40); White Blood Cell (WBC) Count 10.2 10x3/uL (4.8-10.8)
[2022-11-25 06:44] LABS: INR-International Normal Ratio 1.9; Prothrombin Time 22.4 sec (12.0-14.7)
[2022-11-25 06:47] LABS: Anion Gap 21 mmol/L (10-20); BUN (Urea Nitrogen) 11 mg/dL (9.8-20.1); Calc. Creatinine Clearance 193 mL/min (70-130); Calcium 8.9 mg/dL (7.8-10.44); Carbon Dioxide 22 mmol/L (22-29); Chloride 96 mmol/L (98-107); Estimated GFR 84; Glucose 191 mg/dL (70-105); Potassium 3.8 mmol/L (3.5-5.1); Sodium 135 mmol/L (136-145)
[2022-11-25 06:50] LABS: PTT 122.4 sec (22.9-36.1)
[2022-11-25] MEDS: Nystatin Powder 15 GM BOT TOP SCH ×2 (08:50→21:15)
[2022-11-25] MEDS: Famotidine 20 MG TAB PO SCH ×2 (08:50→21:04)
[2022-11-25] MEDS: metFORMIN XR 500 MG TAB PO SCH ×2 (08:50→16:46)
[2022-11-25] MEDS: glipiZIDE 5 MG TAB PO SCH ×2 (08:50→16:45)
[2022-11-25] MEDS: FLUoxetine HCl 20 MG CAP PO SCH (08:50)
[2022-11-25] MEDS: HumaLOG 300 UNITS/3 ML VIAL SC PRN ×3 (12:42→21:04)
[2022-11-25] MEDS: Warfarin Sodium 5 MG TAB PO SCH (16:46)
[2022-11-25] MEDS ORDERED: Warfarin Sodium 3 MG TAB PO SCH (17:00)
[2022-11-25] MEDS: Lisinopril 10 MG TAB PO SCH (21:04)
[2022-11-25] MEDS: Atorvastatin Calcium 10 MG TAB PO SCH (21:04)
[2022-11-25] MEDS: Acetaminophen 325 MG TAB PO PRN (23:34)
[2022-11-26] MEDS: HumaLOG 300 UNITS/3 ML VIAL SC PRN ×2 (06:25→12:43)
[2022-11-26] MEDS: Levothyroxine Sodium 50 MCG TAB PO SCH (06:25)
[2022-11-26 06:53] LABS: #Eosinphils 0.3 thou/uL (0.0-0.7); #Monocytes 0.7 thou/uL (0.11-0.59); #Neutrophils 6.1 thou/uL (1.40-6.50); %Basophils 0.4 % (0.0-1.0); %Eosinophils 2.7 % (0.0-10.0); %Lymphocytes 27.5 % (21.0-51.0); %Monocytes 7.1 % (0.0-10.0); %Neutrophils 60.6 % (42.0-75.0); Hematocrit 26.6 % (36.0-47.0); Hemoglobin 7.9 g/dL (12.0-16.0); Mean Corpuscular HGB CONC 29.7 g/dL (32.0-36.0); Mean Corpuscular Hemoglobin 24.2 pg (27.0-31.0); Mean Corpuscular Volume 81.6 fl (78.0-98.0); Mean Platelet Volume 9.2 fL (7.4-10.4); Platelet Count 320 10x3/uL (130-400); Red Blood Cell (RBC) Count 3.26 mill/uL (4.20-5.40)
[2022-11-26 07:01] LABS: INR-International Normal Ratio 2.2; Prothrombin Time 25.2 sec (12.0-14.7)
[2022-11-26] MEDS: Famotidine 20 MG TAB PO SCH ×2 (08:29→20:04)
[2022-11-26] MEDS: glipiZIDE 5 MG TAB PO SCH ×3 (08:29→17:29)
[2022-11-26] MEDS: FLUoxetine HCl 20 MG CAP PO SCH (08:29)
[2022-11-26] MEDS: Nystatin Powder 15 GM BOT TOP SCH ×2 (08:29→20:04)
[2022-11-26] MEDS: metFORMIN XR 500 MG TAB PO SCH ×3 (08:29→17:28)
[2022-11-26] MEDS: Acetaminophen 325 MG TAB PO PRN ×2 (12:43→20:05)
[2022-11-26] MEDS: Warfarin Sodium 5 MG TAB PO SCH ×2 (16:06→17:29)
[2022-11-26] MEDS ORDERED: Warfarin Sodium 5 MG TAB PO SCH (17:00)
[2022-11-26] MEDS: Lisinopril 10 MG TAB PO SCH (20:04)
[2022-11-26] MEDS: Atorvastatin Calcium 10 MG TAB PO SCH (20:04)
[2022-11-27] MEDS: Levothyroxine Sodium 50 MCG TAB PO SCH (05:19)
[2022-11-27] MEDS: HumaLOG 300 UNITS/3 ML VIAL SC PRN (05:35)
[2022-11-27] MEDS: glipiZIDE 5 MG TAB PO SCH (07:22)
[2022-11-27] MEDS: metFORMIN XR 500 MG TAB PO SCH (07:23)
[2022-11-27 07:48] LABS: #Eosinphils 0.3 thou/uL (0.0-0.7); #Monocytes 0.7 thou/uL (0.11-0.59); #Neutrophils 5.2 thou/uL (1.40-6.50); %Basophils 0.4 % (0.0-1.0); %Eosinophils 3.2 % (0.0-10.0); %Lymphocytes 29.7 % (21.0-51.0); %Monocytes 7.8 % (0.0-10.0); %Neutrophils 57.2 % (42.0-75.0); Hematocrit 26.7 % (36.0-47.0); Hemoglobin 7.9 g/dL (12.0-16.0); Mean Corpuscular HGB CONC 29.6 g/dL (32.0-36.0); Mean Corpuscular Hemoglobin 24.2 pg (27.0-31.0); Mean Corpuscular Volume 81.7 fl (78.0-98.0); Mean Platelet Volume 9.4 fL (7.4-10.4); Platelet Count 311 10x3/uL (130-400); RBC Distribution Width 19.1 % (11.5-14.5); Red Blood Cell (RBC) Count 3.27 mill/uL (4.20-5.40); White Blood Cell (WBC) Count 9.1 10x3/uL (4.8-10.8)
[2022-11-27 08:03] LABS: INR-International Normal Ratio 2.4; Prothrombin Time 26.9 sec (12.0-14.7)
[2022-11-27] MEDS: FLUoxetine HCl 20 MG CAP PO SCH (09:09)
[2022-11-27] MEDS: Nystatin Powder 15 GM BOT TOP SCH (09:09)
[2022-11-27] MEDS: Famotidine 20 MG TAB PO SCH (09:09)
[2022-11-27 11:56] VITALS: BP 160/89; TEMP 98.6
== END 2022-11-27 12:40 | disposition home or self-care (01) | DRG 605 ==
LOC: ERS 22:48 → ERHOLD 11-19 04:36 → T4-B 11-19 14:44 → OBSVTOIN 11-21 16:18
PROVIDERS: ADMIT Student in an Organized Health Care Education/Training Program; ATTEND Family Medicine
PROC: 5A09357 Assistance with Respiratory Ventilation, Less than 24 Consecutive Hours, Continuous Positive Airway Pressure (ICD-10-PCS; principal; 2022-11-23)
DX: S80.12XA Contusion of left lower leg, initial encounter (principal); D68.51 Activated protein C resistance; Z68.43 Body mass index [BMI] 50.0-59.9, adult; E66.01 Morbid (severe) obesity due to excess calories; E11.9 Type 2 diabetes mellitus without complications; I10 Essential (primary) hypertension; G47.33 Obstructive sleep apnea (adult) (pediatric); D64.9 Anemia, unspecified; F31.9 Bipolar disorder, unspecified; Z90.710 Acquired absence of both cervix and uterus; Z98.890 Other specified postprocedural states; Z79.01 Long term (current) use of anticoagulants; Z88.8 Allergy status to other drugs, medicaments and biological substances; Z79.899 Other long term (current) drug therapy; Z79.84 Long term (current) use of oral hypoglycemic drugs; Z79.890 Hormone replacement therapy; Z90.89 Acquired absence of other organs; Z98.51 Tubal ligation status; Z86.718 Personal history of other venous thrombosis and embolism
CPT/HCPCS: 36415; 36416; 80048; 80053; 83036; 85025; 85610; 85730; 86850; 86900; 86901; 96365; 96375; 96376; G0378; J1644; J1650; J1815; J2001; J2270; J2272; J2405; J3430; Q0162; Q9967

== ENCOUNTER 2022-12-21 14:20 | Inpatient (IN) | payer BC ==
[2022-12-21 16:07] LABS: #Eosinphils 0.1 thou/uL (0.0-0.7); #Monocytes 0.7 thou/uL (0.11-0.59); #Neutrophils 7.5 thou/uL (1.40-6.50); %Basophils 0.3 % (0.0-1.0); %Eosinophils 1.4 % (0.0-10.0); %Lymphocytes 19.2 % (21.0-51.0); %Monocytes 6.5 % (0.0-10.0); Hematocrit 28.3 % (36.0-47.0); Hemoglobin 8.4 g/dL (12.0-16.0); Mean Corpuscular HGB CONC 29.7 g/dL (32.0-36.0); Mean Corpuscular Volume 80.9 fl (78.0-98.0); Mean Platelet Volume 9.1 fL (7.4-10.4); Platelet Count 332 10x3/uL (130-400); RBC Distribution Width 17.2 % (11.5-14.5); White Blood Cell (WBC) Count 10.4 10x3/uL (4.8-10.8)
[2022-12-21 16:44] LABS: ALT (SGPT) 10 U/L (8-55); AST (SGOT) 9 U/L (5-34); Albumin 3.5 g/dL (3.5-5.0); Alkaline Phosphatase 69 U/L (40-110); Anion Gap 14 mmol/L (10-20); BUN (Urea Nitrogen) 14 mg/dL (9.8-20.1); Bilirubin, Total 0.2 mg/dL (0.2-1.2); Calc. Creatinine Clearance 0 mL/min (70-130); Calcium 9.1 mg/dL (7.8-10.44); Carbon Dioxide 23 mmol/L (22-29); Chloride 102 mmol/L (98-107); Estimated GFR 80; Globulin 3.2 g/dL (2.4-3.5); Glucose 173 mg/dL (70-105); Potassium 4.4 mmol/L (3.5-5.1); Protein, Total 6.7 g/dL (6.0-8.3); Sodium 135 mmol/L (136-145)
[2022-12-21 17:23] LABS: INR-International Normal Ratio 2.7; Prothrombin Time 30.3 sec (12.0-14.7)
[2022-12-21] MEDS ORDERED: Piperacillin/Tazobactam 3.375 GM VIAL ONE (17:28)
[2022-12-21] MEDS ORDERED: Insulin Regular 300 UNITS/3 ML VIAL SC PRN ×2 (17:42)
[2022-12-21] MEDS ORDERED: Glucagon 1 MG/ML KIT IM PRN (17:42)
[2022-12-21] MEDS ORDERED: Dextrose 50% Abboject 50 ML SYRINGE SLOW IVP PRN (17:42)
[2022-12-21] MEDS ORDERED: Dextrose 5% in Water 1,000 ML IV PRN (17:42)
[2022-12-21] MEDS ORDERED: Ondansetron ODT 4 MG TAB PO PRN (17:48)
[2022-12-21] MEDS ORDERED: Senokot S 8.6-50 MG TAB PO PRN (17:48)
[2022-12-21] MEDS ORDERED: Calcium Carbonate 500 MG ChewTAB PO PRN (17:48)
[2022-12-21] MEDS ORDERED: Acetaminophen 325 MG TAB PO PRN (17:48)
[2022-12-21] MEDS ORDERED: hydrALAZINE 25 MG TAB PO PRN (17:55)
[2022-12-21 19:50] VITALS: BMI 57.4
[2022-12-21] MEDS: Acetaminophen/Codeine 30-300mg Tablet PO PRN (20:18)
[2022-12-21] MEDS: Famotidine 20 MG TAB PO SCH (20:19)
[2022-12-21] MEDS: Atorvastatin Calcium 10 MG TAB PO SCH (20:19)
[2022-12-21] MEDS: Lisinopril 10 MG TAB PO SCH (20:22)
[2022-12-21] MEDS: Insulin Glargine 30 UNITS/0.3 ML VIAL SC SCH (20:23)
[2022-12-21] MEDS: Cefepime 2 GM in Sodium Chloride 0.9% 100 ML IVPB SCH (20:45)
[2022-12-21] MEDS ORDERED: VANCOMYCIN 2 GRAM/500 ML BAG 2 GM in Premix Bag 1 BAG IVPB SCH (22:00)
[2022-12-22] MEDS: Ondansetron PF 4 MG/2 ML Vial IVP PRN ×2 (01:07→14:04)
[2022-12-22] MEDS: Levothyroxine Sodium 50 MCG TAB PO SCH (05:17)
[2022-12-22 06:37] LABS: #Eosinphils 0.1 thou/uL (0.0-0.7); #Monocytes 0.6 thou/uL (0.11-0.59); %Basophils 0.2 % (0.0-1.0); %Eosinophils 0.8 % (0.0-10.0); %Lymphocytes 12.2 % (21.0-51.0); %Monocytes 5.2 % (0.0-10.0); %Neutrophils 81.1 % (42.0-75.0); Hematocrit 27.1 % (36.0-47.0); Hemoglobin 8.1 g/dL (12.0-16.0); Mean Corpuscular HGB CONC 29.9 g/dL (32.0-36.0); Mean Corpuscular Volume 80.2 fl (78.0-98.0); Mean Platelet Volume 9.5 fL (7.4-10.4); Platelet Count 311 10x3/uL (130-400); RBC Distribution Width 17.1 % (11.5-14.5); Red Blood Cell (RBC) Count 3.38 mill/uL (4.20-5.40); White Blood Cell (WBC) Count 12.4 10x3/uL (4.8-10.8)
[2022-12-22 06:50] LABS: INR-International Normal Ratio 2.3; PTT 55.8 sec (22.9-36.1); Prothrombin Time 26.1 sec (12.0-14.7)
[2022-12-22 07:04] LABS: Anion Gap 13 mmol/L (10-20); BUN (Urea Nitrogen) 15 mg/dL (9.8-20.1); Calc. Creatinine Clearance 197 mL/min (70-130); Calcium 8.8 mg/dL (7.8-10.44); Carbon Dioxide 24 mmol/L (22-29); Chloride 103 mmol/L (98-107); Estimated GFR 83; Glucose 141 mg/dL (70-105); Potassium 4.6 mmol/L (3.5-5.1); Sodium 135 mmol/L (136-145)
[2022-12-22] MEDS ORDERED: CEFAZOLIN 2 GM in Sodium Chloride 0.9% 100 ML IVPB SCH (07:45)
[2022-12-22] MEDS: glipiZIDE 5 MG TAB PO SCH ×2 (07:58→17:13)
[2022-12-22] MEDS: metFORMIN 500 MG TAB PO SCH ×2 (07:58→17:13)
[2022-12-22] MEDS: Insulin Glargine 30 UNITS/0.3 ML VIAL SC SCH ×2 (07:59→20:32)
[2022-12-22] MEDS: Cefepime 2 GM in Sodium Chloride 0.9% 100 ML IVPB SCH ×2 (08:20→20:32)
[2022-12-22] MEDS: Famotidine 20 MG TAB PO SCH ×2 (08:21→20:32)
[2022-12-22] MEDS: FLUoxetine HCl 20 MG CAP PO SCH (08:21)
[2022-12-22] MEDS: VANCOMYCIN 1.75 GM/500 ML BAG 1.75 GM in Premix Bag 1 BAG IVPB SCH ×2 (10:01→21:46)
[2022-12-22] MEDS: Acetaminophen/Codeine 30-300mg Tablet PO PRN ×2 (14:03→20:33)
[2022-12-22] MEDS: Lisinopril 10 MG TAB PO SCH (20:31)
[2022-12-22] MEDS: Atorvastatin Calcium 10 MG TAB PO SCH (20:31)
[2022-12-23] MEDS: Acetaminophen/Codeine 30-300mg Tablet PO PRN ×2 (04:24→20:45)
[2022-12-23] MEDS: Levothyroxine Sodium 50 MCG TAB PO SCH (05:46)
[2022-12-23 05:52] LABS: INR-International Normal Ratio 1.9; Prothrombin Time 22.4 sec (12.0-14.7)
[2022-12-23 05:53] LABS: PTT 49.6 sec (22.9-36.1)
[2022-12-23] MEDS: Cefepime 2 GM in Sodium Chloride 0.9% 100 ML IVPB SCH ×3 (08:00→23:53)
[2022-12-23] MEDS: Insulin Glargine 30 UNITS/0.3 ML VIAL SC SCH ×2 (08:05→20:45)
[2022-12-23] MEDS: glipiZIDE 5 MG TAB PO SCH ×2 (08:05→17:48)
[2022-12-23] MEDS: metFORMIN 500 MG TAB PO SCH ×2 (08:05→17:48)
[2022-12-23 09:46] LABS: Vancomycin, Trough 18.7 ug/mL
[2022-12-23] MEDS: VANCOMYCIN 1.75 GM/500 ML BAG 1.75 GM in Premix Bag 1 BAG IVPB SCH ×2 (10:38→21:32)
[2022-12-23] MEDS: Famotidine 20 MG TAB PO SCH ×2 (10:40→20:45)
[2022-12-23] MEDS: FLUoxetine HCl 20 MG CAP PO SCH (10:41)
[2022-12-23] MEDS ORDERED: fentaNYL PF 100 MCG/2 ML SYRINGE ONE (14:48)
[2022-12-23] MEDS ORDERED: Rocuronium Bromide 10 MG/ML (10ML VIAL) ONE (15:11)
[2022-12-23] MEDS ORDERED: PROPOFOL 200 MG/20 ML VIAL ONE (15:11)
[2022-12-23] MEDS ORDERED: Lidocaine 1% PF 5 ML VIAL ONE (15:11)
[2022-12-23] MEDS ORDERED: PHENYLEPHRINE-NS 100 MCG/ML 10 ML SYRINGE ONE (15:11)
[2022-12-23] MEDS ORDERED: ePHEDrine Sulfate 50 MG/10 ML VIAL ONE (15:11)
[2022-12-23] MEDS ORDERED: Ondansetron PF 4 MG/2 ML Vial ONE (15:11)
[2022-12-23] MEDS ORDERED: Dexamethasone 20 MG/5 ML VIAL ONE (15:11)
[2022-12-23] MEDS ORDERED: fentaNYL 50 mcg/mL 1 mL Vial ONE (16:33)
[2022-12-23] MEDS ORDERED: hydrALAZINE 25 MG TAB ONE (17:13)
[2022-12-23] MEDS: Lisinopril 10 MG TAB PO SCH (20:44)
[2022-12-23] MEDS: Atorvastatin Calcium 10 MG TAB PO SCH (20:45)
[2022-12-23] MEDS ORDERED: metroNIDAZOLE 500 MG TAB PO SCH (23:00)
[2022-12-24] MEDS: Acetaminophen/Codeine 30-300mg Tablet PO PRN ×2 (05:00→20:08)
[2022-12-24] MEDS: Levothyroxine Sodium 50 MCG TAB PO SCH (05:01)
[2022-12-24 06:51] LABS: #Monocytes 0.5 thou/uL (0.11-0.59); #Neutrophils 8.5 thou/uL (1.40-6.50); %Basophils 0.1 % (0.0-1.0); %Eosinophils 0.1 % (0.0-10.0); %Lymphocytes 12.6 % (21.0-51.0); %Monocytes 4.9 % (0.0-10.0); %Neutrophils 81.8 % (42.0-75.0); Hematocrit 26.5 % (36.0-47.0); Hemoglobin 7.8 g/dL (12.0-16.0); Mean Corpuscular HGB CONC 29.4 g/dL (32.0-36.0); Mean Corpuscular Hemoglobin 23.9 pg (27.0-31.0); Mean Platelet Volume 9.5 fL (7.4-10.4); Platelet Count 303 10x3/uL (130-400); RBC Distribution Width 16.7 % (11.5-14.5); Red Blood Cell (RBC) Count 3.27 mill/uL (4.20-5.40); White Blood Cell (WBC) Count 10.3 10x3/uL (4.8-10.8)
[2022-12-24 07:06] LABS: INR-International Normal Ratio 1.6
[2022-12-24 07:07] LABS: PTT 37.1 sec (22.9-36.1)
[2022-12-24 07:33] LABS: Anion Gap 13 mmol/L (10-20); BUN (Urea Nitrogen) 13 mg/dL (9.8-20.1); Calc. Creatinine Clearance 224 mL/min (70-130); Calcium 8.7 mg/dL (7.8-10.44); Carbon Dioxide 24 mmol/L (22-29); Chloride 100 mmol/L (98-107); Estimated GFR 97; Glucose 178 mg/dL (70-105); Potassium 4.5 mmol/L (3.5-5.1); Sodium 132 mmol/L (136-145)
[2022-12-24] MEDS: Cefepime 2 GM in Sodium Chloride 0.9% 100 ML IVPB SCH ×2 (08:18→15:28)
[2022-12-24] MEDS: Insulin Glargine 30 UNITS/0.3 ML VIAL SC SCH ×2 (08:18→20:05)
[2022-12-24] MEDS: glipiZIDE 5 MG TAB PO SCH ×2 (08:19→17:06)
[2022-12-24] MEDS: metFORMIN 500 MG TAB PO SCH ×2 (08:19→17:05)
[2022-12-24] MEDS: metroNIDAZOLE 500 MG TAB PO SCH ×3 (08:19→20:05)
[2022-12-24] MEDS: FLUoxetine HCl 20 MG CAP PO SCH (08:19)
[2022-12-24] MEDS: Famotidine 20 MG TAB PO SCH ×2 (08:19→20:05)
[2022-12-24] MEDS: VANCOMYCIN 1.75 GM/500 ML BAG 1.75 GM in Premix Bag 1 BAG IVPB SCH ×2 (10:22→21:48)
[2022-12-24] MEDS ORDERED: HYDROcodone/Acetaminophen 5/325 mg Tablet PO PRN (11:08)
[2022-12-24] MEDS: Morphine 2 MG/ML VIAL SLOW IVP PRN (11:16)
[2022-12-24] MEDS: Atorvastatin Calcium 10 MG TAB PO SCH (20:05)
[2022-12-24] MEDS: Lisinopril 10 MG TAB PO SCH (20:05)
[2022-12-24 21:23] LABS: Vancomycin, Trough 20.8 ug/mL
[2022-12-25] MEDS: Morphine 2 MG/ML VIAL SLOW IVP PRN (00:24)
[2022-12-25] MEDS: Cefepime 2 GM in Sodium Chloride 0.9% 100 ML IVPB SCH ×4 (00:26→22:47)
[2022-12-25] MEDS: Levothyroxine Sodium 50 MCG TAB PO SCH (05:06)
[2022-12-25] MEDS: glipiZIDE 5 MG TAB PO SCH ×2 (08:43→16:57)
[2022-12-25] MEDS: metFORMIN 500 MG TAB PO SCH ×2 (08:43→16:58)
[2022-12-25] MEDS: metroNIDAZOLE 500 MG TAB PO SCH ×3 (08:43→20:53)
[2022-12-25] MEDS: FLUoxetine HCl 20 MG CAP PO SCH (08:43)
[2022-12-25] MEDS: Famotidine 20 MG TAB PO SCH ×2 (08:43→20:53)
[2022-12-25] MEDS: Insulin Glargine 30 UNITS/0.3 ML VIAL SC SCH ×2 (08:44→20:53)
[2022-12-25] MEDS: VANCOMYCIN 1.75 GM/500 ML BAG 1.75 GM in Premix Bag 1 BAG IVPB SCH ×2 (10:09→22:46)
[2022-12-25] MEDS ORDERED: Warfarin Sodium 5 MG TAB PO SCH (18:00)
[2022-12-25] MEDS: Acetaminophen/Codeine 30-300mg Tablet PO PRN (20:52)
[2022-12-25] MEDS: Atorvastatin Calcium 10 MG TAB PO SCH (20:53)
[2022-12-25] MEDS: Lisinopril 10 MG TAB PO SCH (20:53)
[2022-12-26] MEDS: Levothyroxine Sodium 50 MCG TAB PO SCH (05:29)
[2022-12-26 06:54] LABS: INR-International Normal Ratio 1.4; Prothrombin Time 17.4 sec (12.0-14.7)
[2022-12-26] MEDS: Famotidine 20 MG TAB PO SCH ×2 (08:27→20:21)
[2022-12-26] MEDS: AMOXicillin 250 MG CAP PO SCH ×3 (08:27→20:22)
[2022-12-26] MEDS: FLUoxetine HCl 20 MG CAP PO SCH (08:27)
[2022-12-26] MEDS: metFORMIN 500 MG TAB PO SCH ×2 (08:27→16:27)
[2022-12-26] MEDS: glipiZIDE 5 MG TAB PO SCH ×2 (08:28→16:27)
[2022-12-26] MEDS: Cefepime 2 GM in Sodium Chloride 0.9% 100 ML IVPB SCH (08:44)
[2022-12-26] MEDS: Insulin Glargine 30 UNITS/0.3 ML VIAL SC SCH ×2 (08:44→20:22)
[2022-12-26 09:15] LABS: Hematocrit 27.6 % (36.0-47.0); Hemoglobin 8.1 g/dL (12.0-16.0); Platelet Count 295 10x3/uL (130-400)
[2022-12-26] MEDS ORDERED: Warfarin Sodium 5 MG TAB PO SCH (17:00)
[2022-12-26] MEDS: Atorvastatin Calcium 10 MG TAB PO SCH (20:22)
[2022-12-26] MEDS: Lisinopril 10 MG TAB PO SCH (20:22)
[2022-12-27] MEDS: Levothyroxine Sodium 50 MCG TAB PO SCH (04:25)
[2022-12-27 04:28] VITALS: TEMP 97.4
[2022-12-27 06:22] LABS: INR-International Normal Ratio 1.5; Prothrombin Time 18.4 sec (12.0-14.7)
[2022-12-27 07:34] VITALS: BP 151/88
[2022-12-27] MEDS: AMOXicillin 250 MG CAP PO SCH (08:49)
[2022-12-27] MEDS: FLUoxetine HCl 20 MG CAP PO SCH (08:49)
[2022-12-27] MEDS: Famotidine 20 MG TAB PO SCH (08:49)
[2022-12-27] MEDS: glipiZIDE 5 MG TAB PO SCH (08:49)
[2022-12-27] MEDS: metFORMIN 500 MG TAB PO SCH (08:49)
[2022-12-27] MEDS: Insulin Glargine 30 UNITS/0.3 ML VIAL SC SCH (08:49)
== END 2022-12-27 10:51 | disposition home or self-care (01) | DRG 264 ==
LOC: ERS 14:20 → T4-A 18:50 → OBSVTOIN 12-22 12:20
PROVIDERS: ADMIT Internal Medicine; ATTEND Family Medicine
PROC: 0JBP0ZZ Excision of Left Lower Leg Subcutaneous Tissue and Fascia, Open Approach (ICD-10-PCS; principal; 2022-12-23)
PROC: 0JCP0ZZ Extirpation of Matter from Left Lower Leg Subcutaneous Tissue and Fascia, Open Approach (ICD-10-PCS; 2022-12-23)
PROC: 5A09457 Assistance with Respiratory Ventilation, 24-96 Consecutive Hours, Continuous Positive Airway Pressure (ICD-10-PCS; 2022-12-23)
PROC: 0JDP0ZZ Extraction of Left Lower Leg Subcutaneous Tissue and Fascia, Open Approach (ICD-10-PCS; 2022-12-23)
DX: E11.52 Type 2 diabetes mellitus with diabetic peripheral angiopathy with gangrene (principal); L03.116 Cellulitis of left lower limb; D68.51 Activated protein C resistance; Z68.43 Body mass index [BMI] 50.0-59.9, adult; D68.59 Other primary thrombophilia; E66.01 Morbid (severe) obesity due to excess calories; I10 Essential (primary) hypertension; E03.9 Hypothyroidism, unspecified; G47.33 Obstructive sleep apnea (adult) (pediatric); D72.829 Elevated white blood cell count, unspecified; E78.5 Hyperlipidemia, unspecified; F31.9 Bipolar disorder, unspecified; Z79.01 Long term (current) use of anticoagulants; Z86.718 Personal history of other venous thrombosis and embolism; Z86.711 Personal history of pulmonary embolism; Z88.8 Allergy status to other drugs, medicaments and biological substances; Z88.1 Allergy status to other antibiotic agents; Z79.899 Other long term (current) drug therapy; Z79.84 Long term (current) use of oral hypoglycemic drugs; Z98.51 Tubal ligation status; Z90.710 Acquired absence of both cervix and uterus; Z90.89 Acquired absence of other organs; Z98.890 Other specified postprocedural states
CPT/HCPCS: 10140; 36415; 36416; 80048; 80053; 80202; 82565; 83605; 85014; 85018; 85025; 85049; 85610; 85652; 85730; 86140; 87040; 87070; 87076; 87077; 87186; 87205; 96365; 96367; 96375; 96376; 97139; 97605; 99214; G0378; G0463; J0692; J1100; J1650; J1815; J2272; J2405; J2543; J2704; J3010; J3370; J3490; Q0162

== ENCOUNTER 2023-01-04 12:46 | Emergency (ER) | payer BC | END 2023-01-04 13:39 | disposition home or self-care (01) | LOC: ERS 12:46 | DX: S81.802A Unspecified open wound, left lower leg, initial encounter (principal); I10 Essential (primary) hypertension; W20.8XXA Other cause of strike by thrown, projected or falling object, initial encounter | CPT/HCPCS: 99283 ==